=== PATIENT | female | born 1995 | race Caucasian/White ===

== ENCOUNTER 2018-05-02 19:06 | Emergency (ER) | payer MEDICAID, OTHER ==
[2018-05-02] MEDS ORDERED: ACETAMINOPHEN 325 MG TABLET PO ONE (20:22)
--- NOTE | 2018-05-02 20:31 | ER Document Report ---
ED Medical Screen (RME) - General Chief Complaint: Urinary Problem Stated Complaint: FLANK PAIN,BLOOD IN URINE Time Seen by Provider: 05/02/18 20:11 Notes: RAPID MEDICAL EVALUATION DISCLOSURE I have seen this patient as part of a Rapid Medical Evaluation and, if applicable, placed any initially appropriate orders. The patient will be seen and fully evaluated, including a full history and physical exam, by a provider ( in Main ED or Fast Track) when a room becomes available. 22-year-old female here with complaints of bilateral back pain and hematuria that started early this morning. Some associated nausea but no dysuria vomiting diarrhea abdominal pain. She has had Tylenol for the symptoms with decent relief. She has a history of UTI and states it feels similar. TRAVEL OUTSIDE OF THE [place] IN LAST 30 DAYS: No - Related Data Allergies/Adverse Reactions: No Known Allergies Allergy (Verified 09/05/15 14:24) Past Medical History - General Last Menstrual Period: 04/20/18 - Social History Frequency of alcohol use: Occasional Drug Abuse: None Pulmonary Medical History: Denies: Hx Asthma, Hx Bronchitis, Hx Pneumonia Neurological Medical History: Reports: Hx Migraine Renal/ Medical History: Reports: Hx Kidney Stones. Denies: Hx Peritoneal Dialysis Past Surgical History: Reports: Hx Tonsillectomy - Immunizations Immunizations up to date: Yes Hx Diphtheria, Pertussis, Tetanus Vaccination: Yes Doctor's Discharge - Discharge Referrals: JUN VAIL MD [Primary Care Provider] - Follow up as needed
--- NOTE | 2018-05-02 22:05 | ER Document Report ---
ED GI/ - General Chief Complaint: Urinary Problem Stated Complaint: FLANK PAIN,BLOOD IN URINE Time Seen by Provider: 05/02/18 20:11 Mode of Arrival: Ambulatory Information source: Patient Notes: Chief complaint: Left flank pain History of complain:( obtained from----patient) 22 years old female presents today with left flank pain since this evening, denies any dysuria frequency or urgency. Denies any radiation to the groin. Except hematuria. No fever chills or other constitutional symptoms Onset: Today sudden Duration: One day Severity: Mild to moderate Quality: Sharp Context: History of kidney stones Exacerbating factor and relieving factors: None REVIEW OF SYSTEMS: CONSTITUTIONAL : Denies fever, chills, or sweats. Denies recent illness. EENT: Denies eye, ear, throat, or mouth pain or symptoms. Denies nasal or sinus congestion or discharge. Denies throat, tongue, or mouth swelling or difficulty swallowing. CARDIOVASCULAR: Denies chest pain. Denies palpitations or racing or irregular heart beat. Denies ankle edema. RESPIRATORY: Denies cough, cold, or chest congestion. Denies shortness of breath, difficulty breathing, or wheezing. GASTROINTESTINAL: Denies distention. Denies nausea, vomiting, or diarrhea. Denies blood in vomitus, stools, or per rectum. Denies black, tarry stools. Denies constipation. GENITOURINARY: Denies difficulty urinating, painful urination, burning, frequency, blood in urine, or discharge. FEMALE GENITOURINARY: Denies vaginal bleeding, heavy or abnormal periods, irregular periods. Denies vaginal discharge or odor. MUSCULOSKELETAL: Denies back or neck pain or stiffness. Denies joint pain or swelling. SKIN: Denies rash, lesions or sores. HEMATOLOGIC : Denies easy bruising or bleeding. LYMPHATIC: Denies swollen, enlarged glands. NEUROLOGICAL: Denies confusion or altered mental status. Denies passing out or loss of consciousness. Denies dizziness or lightheadedness. Denies headache. Denies weakness or paralysis or loss of use of either side. Denies problems with gait or speech. Denies sensory loss, numbness, or tingling. Denies seizures. PSYCHIATRIC: Denies anxiety or stress. Denies depression, suicidal ideation, or homicidal ideation. ALL OTHER SYSTEMS REVIEWED AND NEGATIVE. PHYSICAL EXAMINATION: GENERAL: Well-appearing, well-nourished and in no acute distress. HEAD: Atraumatic, normocephalic. EYES: Pupils equal round and reactive to light, extraocular movements intact, conjunctiva are normal. ENT: Nares patent, oropharynx clear without exudates. Moist mucous membranes. NECK: Normal range of motion, supple without lymphadenopathy LUNGS: Breath sounds clear to auscultation bilaterally and equal. No wheezes rales or rhonchi. HEART: Regular rate and rhythm without murmurs ABDOMEN: Soft, nontender, nondistended abdomen. No guarding, no rebound. No masses appreciated. Right flank tenderness noted on palpation. Examination of genitals-deferred Musculoskeletal: Normal range of motion, no pitting or edema. No cyanosis. NEUROLOGICAL: Cranial nerves grossly intact. Normal speech, normal gait. Normal sensory, motor exams PSYCH: Normal mood, normal affect. SKIN: Warm, Dry, normal turgor, no rashes or lesions noted. Dictation was performed using too[employer]me voice recognition software TRAVEL OUTSIDE OF THE [place] IN LAST 30 DAYS: No - HPI Timing/Duration: Gradual Severity at maximum: Moderate Severity in ED: Moderate - Related Data Allergies/Adverse Reactions: No Known Allergies Allergy (Verified 09/05/15 14:24) Past Medical History - General Information source: Patient Last Menstrual Period: 04/20/18 - Social History Smoking Status: Former Smoker Cigarette use (# per day): No Chew tobacco use (# tins/day): No Smoking Education Provided: No Frequency of alcohol use: Occasional Drug Abuse: None Lives with: Family Family History: Reviewed & Not Pertinent, Hyperlipidemia, Hypertension, Malignancy Patient has suicidal ideation: No Patient has homicidal ideation: No Pulmonary Medical History: Denies: Hx Asthma, Hx Bronchitis, Hx Pneumonia Neurological Medical History: Reports: Hx Migraine Renal/ Medical History: Reports: Hx Kidney Stones. Denies: Hx Peritoneal Dialysis Past Surgical History: Reports: Hx Tonsillectomy - Immunizations Immunizations up to date: Yes Hx Diphtheria, Pertussis, Tetanus Vaccination: Yes Review of Systems - Review of Systems Notes: Dictated Physical Exam - Notes Notes: Dictated Course - Laboratory Laboratory results interpreted by me: 05/02/18 19:40 Urine Protein 100 H Urine Blood LARGE H Ur Leukocyte Esterase LARGE H Urine Ascorbic Acid 20 H - Diagnostic Test Radiology reviewed: Image reviewed - KUB showed large amount of fecal material, Reports reviewed Discharge - Discharge Clinical Impression: Constipation by delayed colonic transit UTI (urinary tract infection) Qualifiers: Urinary tract infection type: acute cystitis Hematuria presence: without hematuria Qualified Code(s): N30.00 - Acute cystitis without hematuria Condition: Fair Disposition: HOME, SELF-CARE Instructions: Urinary Tract Infection ([facility]), Constipation ([facility]) Prescriptions: Ciprofloxacin HCl [Cipro 500 mg Tablet] 500 mg PO BID #20 tablet Lactulose 20 gm PO BID #120 ml Referrals: JUN VAIL MD [COMMUNITY BASED STAFF] - Follow up as needed
[2018-05-02 22:10] LABS: APPEARANCE,URINE CLOUDY; BILIRUBIN,URINE NEGATIVE (NEGATIVE); COLOR,URINE YELLOW; GLUCOSE, URINE NEGATIVE (NEGATIVE); KETONES,URINE NEGATIVE (NEGATIVE); LEUKOCYTE ESTERASE,URINE LARGE (NEGATIVE); NITRITE,URINE NEGATIVE (NEGATIVE); PROTEIN,URINE 100 mg/dL (NEGATIVE); URINE SPECIFIC GRAVITY 1.023; UROBILINOGEN,URINE NEGATIVE mg/dL (<2.0)
[2018-05-02 22:11] LABS: AMORPHOUS SEDIMENT,URINE TRACE /HPF
--- NOTE | 2018-05-02 23:30 | RADIOLOGY REPORT (SQ) ---
EXAM DESCRIPTION: CT ABDOMEN PELVIS WITHOUT IV CONTRAST COMPLETED DATE/TME: 05/02/2018 22:29 CLINICAL HISTORY: Left flank pain, hematuria COMPARISON: None Available. TECHNIQUE: CT of the abdomen and pelvis without IV contrast. Evaluation of the solid organs and vasculature is suboptimal due to lack of IV contrast. DLP: 241.74 mGy-cm FINDINGS: Lung Bases: The visualized lung bases are clear. Bones: No destructive bone lesions identified. Abdomen: Liver: The liver has normal size and density. Gallbladder: No calcified gallstones. Spleen, Pancreas, and Adrenal Glands: The spleen, pancreas, and adrenal glands are unremarkable. Kidneys: The kidneys have normal size and contour without evidence of hydronephrosis. No obstructing ureteral calculi. Vasculature: The aorta and IVC have normal caliber and position. Stomach: The stomach and duodenum have normal course. Other: No free intraperitoneal air. No free fluid or lymphadenopathy. Pelvis: Bladder: Urinary bladder is unremarkable. Bowel: No dilated loops of large or small bowel. Appendix: The appendix is not definitely visualized. No secondary signs of acute appendicitis. Pelvis: Uterus is not enlarged. IMPRESSION: 1. No acute inflammatory or obstructive process identified. This exam was performed according to our departmental dose-optimization program, which includes automated exposure control, adjustment of the mA and/or kV according to patient size and/or use of iterative reconstruction technique.
[2018-05-03] MEDS ORDERED: CIPROFLOXACIN HCL 500 MG TABLET PO ONE (01:02)
[2018-05-03] MEDS ORDERED: LACTULOSE SYRUP 20 GM/30 ML UDCUP PO ONE (01:02)
[2018-05-03 01:23] VITALS: BP 123/66
== END 2018-05-03 01:15 | disposition home or self-care (01) ==
LOC: ER 19:06
DX: N30.00 Acute cystitis without hematuria (principal); K59.01 Slow transit constipation; R10.9 Unspecified abdominal pain; R31.9 Hematuria, unspecified; Z87.891 Personal history of nicotine dependence
CPT/HCPCS: 74176; 81001; 81025; 99284

== ENCOUNTER → 2018-08-03 | Outpatient (CLI) | payer OTHER ==
[2018-08-03 11:31] LABS: FREE T4 (FREE THYROXINE) 1.13 ng/dL (0.78-2.19)
[2018-08-03 11:45] LABS: THYROID STIMULATING HORMONE 0.87 uIU/mL (0.47-4.68)
== END ==
LOC: OD 09:55
PROVIDERS: ATTEND Psychiatry & Neurology Psychiatry
DX: F33.1 Major depressive disorder, recurrent, moderate (principal); Z79.899 Other long term (current) drug therapy
CPT/HCPCS: 36415; 84439; 84443

== ENCOUNTER → 2019-06-01 | Outpatient (CLI) | payer SELFPAY ==
--- NOTE | 2019-06-01 15:47 | RADIOLOGY REPORT (SQ) ---
EXAM DESCRIPTION: U/S [id number] TRNABD 1GES W/ODOP COMPLETED DATE/TIME: 06/01/2019 3:31 pm REASON FOR STUDY: Z34.01 ENCNTR FOR SUPRVSN OF NORMAL FIRST PREG, FIRST TRIMESTER Z34.01 ENCNTR FOR SUPRVSN OF NORMAL FIRST PREG, FIRST TRIMES COMPARISON: None. TECHNIQUE: Transabdominal static and realtime grayscale images acquired of the pelvis. Additional se lected spectral and color Doppler images recorded. All images stored on PACs. bHCG: Not available. CLINICAL DATES: MINDI: 12/26/2019. EGA: 10 weeks 2 days LIMITATIONS: None. FINDINGS: FETUS: Single Living intrauterine . ULTRASOUND EGA: 8 weeks 2 days ULTRASOUND MINDI: 01/09/2020 EFW: Not applicable less than 20 weeks. CRL: 1.8 cm FHR: 173 beats per minute. SURVEY: No visualized anomalies. AMNIOTIC FLUID: Adequate amount. PLACENTA: Not yet developed due to early gestation. SUBCHORIONIC BLEED: No. SIZE OF BLEED: Not applicable. UTERUS: The uterus measures 9.0 x 7.0 x 5.1 cm No masses. No anomalies. CERVICAL LENGTH: 2.6 cm. Closed. RIGHT ADNEXA: Not visualized, LEFT ADNEXA: Not visualized. FREE FLUID: None. OTHER: No other significant finding. IMPRESSION: LIVING INTRAUTERINE . EGA: 8 weeks 2 days Trimester of : First trimester - 0 to 13 weeks. TECHNICAL DOCUMENTATION: JOB ID: [id number]- All Rights Reserved rev Reading location - IP/workstation name: [email or web address]
== END ==
LOC: RAD 14:50
PROVIDERS: ATTEND Midwife
DX: Z34.01 Encounter for supervision of normal first pregnancy, first trimester (principal)
CPT/HCPCS: 76801

== ENCOUNTER 2019-12-12 11:16 | Outpatient (CLI) | payer MEDICAID ==
[2019-12-12 11:48] LABS: APPEARANCE,URINE SLIGHTLY-CLOUDY; BILIRUBIN,URINE NEGATIVE (NEGATIVE); COLOR,URINE YELLOW; GLUCOSE, URINE NEGATIVE (NEGATIVE); KETONES,URINE NEGATIVE (NEGATIVE); LEUKOCYTE ESTERASE,URINE MODERATE (NEGATIVE); NITRITE,URINE NEGATIVE (NEGATIVE); PROTEIN,URINE NEGATIVE (NEGATIVE); URINE SPECIFIC GRAVITY 1.011; UROBILINOGEN,URINE NEGATIVE mg/dL (<2.0)
[2019-12-12 12:13] LABS: URINE AMPHETAMINES SCREEN NEGATIVE; URINE BARBITURATES SCREEN NEGATIVE; URINE BENZODIAZEPINES SCREEN NEGATIVE; URINE COCAINE SCREEN NEGATIVE; URINE MARIJUANA (THC) SCREEN NEGATIVE; URINE METHADONE SCREEN NEGATIVE; URINE PHENCYCLIDINE SCREEN NEGATIVE
--- NOTE | 2019-12-12 13:26 | Non Stress Test Report ---
Non Stress Test Datetime Report Generated by CPN: 12/12/2019 13:26 DEMOGRAPHIC EGA NST: 36.0 INDICATION Indication for Study (NST) Other: false labor, thought membrane rupture MONITORING Monitor Explained: Monitor Explained; Test Explained; Patient Verbalized Understanding Time on Monitor: 12/12/2019 12:02 Time off Monitor: 12/12/2019 13:13 NST Duration: 71 NST INTERVENTIONS NST Interventions: PO Hydration Physician Notified NST: k. mosquera cnm BABY A: [id number] BABY A Movement : Present Contraction Frequency : irritability FHR Baseline : 130 Accelerations : 15X15 Decelerations : None Variability : Moderate 6-25bpm NST Review: Meets Criteria for Reactive NST NST Review and Verified By : Roselia Hall RN NST Results: Reactive NST REPORT Report Trigger: Send Report
== END 2019-12-12 13:21 | disposition home or self-care (01) ==
LOC: LC 11:16
PROVIDERS: ATTEND Obstetrics & Gynecology
PROC: 4A1HXCZ Monitoring of Products of Conception, Cardiac Rate, External Approach (ICD-10-PCS; principal; 2019-12-12)
DX: O47.03 False labor before 37 completed weeks of gestation, third trimester (principal); Z3A.36 36 weeks gestation of pregnancy
CPT/HCPCS: 59025; 80307; 81005; 84112

== ENCOUNTER 2019-12-16 12:25 | Outpatient (CLI) | payer MEDICAID ==
[2019-12-16 13:01] LABS: APPEARANCE,URINE SLIGHTLY-CLOUDY; BILIRUBIN,URINE NEGATIVE (NEGATIVE); COLOR,URINE YELLOW; GLUCOSE, URINE NEGATIVE (NEGATIVE); KETONES,URINE NEGATIVE (NEGATIVE); LEUKOCYTE ESTERASE,URINE SMALL (NEGATIVE); NITRITE,URINE NEGATIVE (NEGATIVE); PROTEIN,URINE NEGATIVE (NEGATIVE); URINE SPECIFIC GRAVITY 1.009; UROBILINOGEN,URINE NEGATIVE mg/dL (<2.0)
[2019-12-16 13:32] LABS: URINE AMPHETAMINES SCREEN NEGATIVE; URINE BARBITURATES SCREEN NEGATIVE; URINE BENZODIAZEPINES SCREEN NEGATIVE; URINE COCAINE SCREEN NEGATIVE; URINE MARIJUANA (THC) SCREEN NEGATIVE; URINE METHADONE SCREEN NEGATIVE; URINE PHENCYCLIDINE SCREEN NEGATIVE
--- NOTE | 2019-12-16 13:53 | Non Stress Test Report ---
Non Stress Test Datetime Report Generated by CPN: 12/16/2019 13:52 DEMOGRAPHIC EGA NST: 36.4 INDICATION Indication for Study (NST) Other: IUP at 36.4; No cervical dilatation. MONITORING Monitor Explained: Monitor Explained; Test Explained; Patient Verbalized Understanding Time on Monitor: 12/16/2019 12:38 Time off Monitor: 12/16/2019 13:35 NST Duration: 57 NST INTERVENTIONS NST Interventions: PO Hydration Physician Notified NST: Dr Pedroza BABY A: [id number] BABY A Movement : Present Contraction Frequency : Rare FHR Baseline : 135 Accelerations : 15X15 Decelerations : None Variability : Moderate 6-25bpm NST Review: Meets Criteria for Reactive NST NST Review and Verified By : Roselia Hall RN NST Results: Reactive NST REPORT Report Trigger: Send Report
== END 2019-12-16 13:43 | disposition home or self-care (01) ==
LOC: LC 12:25
PROVIDERS: ATTEND Obstetrics & Gynecology
PROC: 4A1HXCZ Monitoring of Products of Conception, Cardiac Rate, External Approach (ICD-10-PCS; principal; 2019-12-16)
DX: O47.03 False labor before 37 completed weeks of gestation, third trimester (principal); Z3A.36 36 weeks gestation of pregnancy
CPT/HCPCS: 59025; 80307; 81005

== ENCOUNTER 2019-12-23 00:42 | Outpatient (CLI) | payer MEDICAID ==
[2019-12-23 01:06] LABS: APPEARANCE,URINE CLEAR; BILIRUBIN,URINE NEGATIVE (NEGATIVE); COLOR,URINE YELLOW; GLUCOSE, URINE NEGATIVE (NEGATIVE); KETONES,URINE NEGATIVE (NEGATIVE); LEUKOCYTE ESTERASE,URINE NEGATIVE (NEGATIVE); NITRITE,URINE NEGATIVE (NEGATIVE); PROTEIN,URINE NEGATIVE (NEGATIVE); URINE SPECIFIC GRAVITY 1.011; UROBILINOGEN,URINE NEGATIVE mg/dL (<2.0)
[2019-12-23 01:39] LABS: URINE AMPHETAMINES SCREEN NEGATIVE; URINE BARBITURATES SCREEN NEGATIVE; URINE BENZODIAZEPINES SCREEN NEGATIVE; URINE COCAINE SCREEN NEGATIVE; URINE MARIJUANA (THC) SCREEN NEGATIVE; URINE METHADONE SCREEN NEGATIVE; URINE PHENCYCLIDINE SCREEN NEGATIVE
--- NOTE | 2019-12-23 01:56 | Non Stress Test Report ---
Non Stress Test Datetime Report Generated by CPN: 12/23/2019 01:56 DEMOGRAPHIC EGA NST: 37.4 INDICATION Indication for Study (NST) Other: labor check URINE RESULTS Urine Ketones - NST: Negative Urine Glucose - NST: Negative Urine Blood - NST: Positive MONITORING Monitor Explained: Monitor Explained; Test Explained; Patient Verbalized Understanding Time on Monitor: 12/23/2019 00:59 Time off Monitor: 12/23/2019 01:43 NST Duration: 44 NST INTERVENTIONS NST Interventions: PO Hydration BABY A: [id number] BABY A Contraction Frequency : occasional FHR Baseline : 125 Accelerations : 15X15 Decelerations : None Variability : Moderate 6-25bpm NST REPORT Report Trigger: Send Report
[2019-12-23 07:17] LABS: INTERNATIONAL RATION (INR) 1.11; PROTHROMBIN TIME 14.3 SEC (11.4-15.4)
[2019-12-23 07:18] LABS: FIBRINOGEN 503 mg/dL (209-497); PARTIAL THROMBOPLASTIN TIME 27.9 SEC (23.5-35.8)
[2019-12-23 17:18] LABS: RHOGAM DOSE INDICATED 0 VIAL(S)
== END 2019-12-23 01:52 | disposition home or self-care (01) ==
LOC: LC 00:42
PROVIDERS: ATTEND Obstetrics & Gynecology
PROC: 4A1HXCZ Monitoring of Products of Conception, Cardiac Rate, External Approach (ICD-10-PCS; principal; 2019-12-23)
DX: O47.1 False labor at or after 37 completed weeks of gestation (principal); Z3A.37 37 weeks gestation of pregnancy
CPT/HCPCS: 36415; 59025; 80307; 81001; 85384; 85460; 85610; 85730

== ENCOUNTER 2019-12-23 06:10 | Outpatient (CLI) | payer MEDICAID ==
[2019-12-23 07:13] LABS: ABSOLUTE EOSINOPHILS # (AUTO) 0.1 10^3/uL (0.0-0.6); ABSOLUTE LYMPHOCYTES (AUTO) 2.3 10^3/uL (0.5-4.7); ABSOLUTE MONOCYTES (AUTO) 0.9 10^3/uL (0.1-1.4); ABSOLUTE NEUT (AUTO) 7.3 10^3/uL (1.7-8.2); BASOPHILS % (AUTO) 0.3 % (0-2); EOSINOPHILS % (AUTO) 0.9 % (0-6); HEMATOCRIT 32.1 % (36.0-47.0); HEMOGLOBIN 11.6 g/dL (12.0-15.5); LYMPHOCYTES % (AUTO) 21.4 % (13-45); MEAN CORPUSCULAR HEMOGLOBIN 31.1 pg (27.0-33.4); MEAN CORPUSCULAR HGB CONC 36.2 g/dL (32.0-36.0); MEAN CORPUSCULAR VOLUME 86 fl (80-97); MONOCYTES % (AUTO) 8.9 % (3-13); PLATELET COUNT 219 10^3/uL (150-450); RED BLOOD COUNT 3.75 10^6/uL (3.72-5.28); RED CELL DISTRIBUTION WIDTH 12.8 % (11.5-14.0); SEGMENTED NEUTROPHILS % (AUTO) 68.5 % (42-78); TOTAL CELLS COUNTED % (AUTO) 100 %; WHITE BLOOD COUNT 10.6 10^3/uL (4.0-10.5)
--- NOTE | 2019-12-23 10:01 | Non Stress Test Report ---
Non Stress Test Datetime Report Generated by CPN: 12/23/2019 10:00 DEMOGRAPHIC Test Number: 4 EGA NST: 37.4 INDICATION Indication for Study (NST) Other: vaginal bleeding MONITORING Monitor Explained: Monitor Explained; Test Explained; Patient Verbalized Understanding Time on Monitor: 12/23/2019 06:34 Time off Monitor: 12/23/2019 09:04 NST Duration: 150 NST INTERVENTIONS NST Interventions: None Physician Notified NST: Dr Zelalem BABY A: [id number] BABY A Movement : Present Contraction Frequency : irregular FHR Baseline : 125 Accelerations : 15X15 Decelerations : None Variability : Moderate 6-25bpm NST Review: Meets Criteria for Reactive NST NST Review and Verified By : TMaritn,RN NST Results: Reactive NST REPORT Report Trigger: Send Report
== END 2019-12-23 09:23 | disposition home or self-care (01) ==
LOC: LC 06:10
PROVIDERS: ATTEND Obstetrics & Gynecology
PROC: 4A1HXCZ Monitoring of Products of Conception, Cardiac Rate, External Approach (ICD-10-PCS; principal; 2019-12-23)
DX: O46.8X3 Other antepartum hemorrhage, third trimester (principal); O47.1 False labor at or after 37 completed weeks of gestation; Z3A.37 37 weeks gestation of pregnancy
CPT/HCPCS: 36415; 59025; 85025

== ENCOUNTER 2019-12-29 06:28 | Inpatient (IN) | payer MEDICAID ==
[2019-12-29 06:54] LABS: APPEARANCE,URINE CLEAR; BILIRUBIN,URINE NEGATIVE (NEGATIVE); COLOR,URINE STRAW; GLUCOSE, URINE NEGATIVE (NEGATIVE); KETONES,URINE NEGATIVE (NEGATIVE); LEUKOCYTE ESTERASE,URINE TRACE (NEGATIVE); NITRITE,URINE NEGATIVE (NEGATIVE); PROTEIN,URINE NEGATIVE (NEGATIVE); URINE SPECIFIC GRAVITY 1.005; UROBILINOGEN,URINE NEGATIVE mg/dL (<2.0)
[2019-12-29] MEDS ORDERED: RINGERS SOLUTION,LACTATED 1,000 ML IV ONE (06:54)
[2019-12-29] MEDS ORDERED: RINGERS SOLUTION,LACTATED 1,000 ML IV PRN (06:54)
--- NOTE | 2019-12-29 06:58 | Admission Physical ---
Datetime Report Generated by CPN: 12/29/2019 06:57 CURRENT ADMISSION Chief Complaint: Suspected Ruptured Membranes Indication for Induction: Not Applicable Admit Impression : Term, Intrauterine Admit Plan: Admit to Unit; Initiate Labor Protocol ALLERGIES Medication Allergies: No Medication Allergies: No Known Allergies (12/29/2019) Latex: No Latex Allergies OBSTETRICAL HISTORY EDC: 01/09/2020 00:00 : 3 Para: 0 Term: 0 : 0 SAB: 2 IAB: 0 Livin Gestational Diabetes: No Rh Sensitization: No Incompetent Cervix: No FELIX: No Infertility: No ART Treatment: No Uterine Anomaly: No IUGR: No Hx Previous C/S: No Macrosomia: No Hx Loss/Stillborn: No PIH: No Hx : No Placenta Previa/Abruption: No Depression/PP Depression: Yes PTL/PROM: No Post Hemorrhage: No Current Procedures: Ultrasound Obstetrical History Comments: G1- 6 Weeks, 2016 G2-8 Weeks, 2017 G3- Current SEE RECORDS Alcohol: No Marijuana : No Cocaine: No Other Illicit Drugs: No Cigarettes: Former Smoker. [id number] MEDICAL HISTORY Diabetes: No Blood Transfusion: No Pulmonary Disease (Asthma, TB): No Breast Disease: No Hypertension: No [employer] Agent Surgery: No Heart Disease: No Hosp/Surgery: No Autoimmune Disorder: No Anesthetic Complications: No Kidney Disease: No Abnormal Pap Smear: No Neuro/Epilepsy: No Psychiatric Disorders: No Other Medical Diseases: No Hepatitis/Liver Disease: No Significant Family History: No Varicosities/Phlebitis: No Trauma/Violence : No Thyroid Dysfunction: No INFECTIOUS HISTORY Gonorrhea: No Genital Herpes: No Chlamydia: No Tuberculosis: No Syphilis: No Hepatitis: No HIV/AIDS Exposure: No Rash or Viral Illness: No HPV: No PHYSICAL EXAM General: Normal HEENT: Normal Neurologic: Normal Thyroid: Normal Heart: Normal Lungs: Normal Breast: Deferred Back: Normal Abdomen: Normal Genitourinary Exam: Normal Extremities: Normal DTRs: Normal Pelvic Type: Adequate FETUS A EGA: 38.3 PLANS FOR LABOR AND DELIVERY Labor and Delivery: None Pain Management: Natural Feeding Preference: Both Benefit of Breast Feed Discussed: Yes Circumcision: Yes INFORMED CONSENT Signature: with User ID: [email or web address]
[2019-12-29 07:08] LABS: URINE AMPHETAMINES SCREEN NEGATIVE; URINE BARBITURATES SCREEN NEGATIVE; URINE BENZODIAZEPINES SCREEN NEGATIVE; URINE COCAINE SCREEN NEGATIVE; URINE MARIJUANA (THC) SCREEN NEGATIVE; URINE METHADONE SCREEN NEGATIVE; URINE PHENCYCLIDINE SCREEN NEGATIVE
[2019-12-29 07:41] LABS: ABSOLUTE EOSINOPHILS # (AUTO) 0.1 10^3/uL (0.0-0.6); ABSOLUTE LYMPHOCYTES (AUTO) 2.8 10^3/uL (0.5-4.7); ABSOLUTE MONOCYTES (AUTO) 1.1 10^3/uL (0.1-1.4); ABSOLUTE NEUT (AUTO) 7.8 10^3/uL (1.7-8.2); BASOPHILS % (AUTO) 0.4 % (0-2); HEMATOCRIT 34.7 % (36.0-47.0); HEMOGLOBIN 12.3 g/dL (12.0-15.5); LYMPHOCYTES % (AUTO) 23.5 % (13-45); MEAN CORPUSCULAR HEMOGLOBIN 30.2 pg (27.0-33.4); MEAN CORPUSCULAR HGB CONC 35.3 g/dL (32.0-36.0); MEAN CORPUSCULAR VOLUME 86 fl (80-97); PLATELET COUNT 218 10^3/uL (150-450); RED BLOOD COUNT 4.05 10^6/uL (3.72-5.28); RED CELL DISTRIBUTION WIDTH 13.2 % (11.5-14.0); SEGMENTED NEUTROPHILS % (AUTO) 66.1 % (42-78); TOTAL CELLS COUNTED % (AUTO) 100 %; WHITE BLOOD COUNT 11.8 10^3/uL (4.0-10.5)
[2019-12-29] MEDS ORDERED: ONDANSETRON HCL INJ/PF 4 MG/2 ML SDV ONE (08:25)
[2019-12-29] MEDS ORDERED: ONDANSETRON HCL INJ/PF 4 MG/2 ML SDV IV PRN (08:25)
[2019-12-29] MEDS ORDERED: LIDOCAINE 1% INJ-PF (10 MG/ML) 30 ML SDV ONE ×2 (08:40→09:39)
[2019-12-29] MEDS ORDERED: MISOPROSTOL 0.2 MG TABLET ONE (08:40)
[2019-12-29] MEDS ORDERED: OXYTOCIN/NORMAL SALINE 20 UNIT/1,000 ML RTUINJ ONE (08:40)
[2019-12-29] MEDS ORDERED: GLYCERIN/WITCH HAZEL LEAF 1 EACH MED..WIPE TP PRN (09:01)
[2019-12-29] MEDS ORDERED: ZOLPIDEM TARTRATE 5 MG TABLET PO PRN (09:01)
[2019-12-29] MEDS ORDERED: PROMETHAZINE HCL INJ 25 MG/1 ML VIAL IV PRN (09:01)
[2019-12-29] MEDS ORDERED: MEASLES,MUMPS&RUBELLA VACC/PF 0.5 ML VIAL SUBCUT PRN (09:01)
[2019-12-29] MEDS ORDERED: DIBUCAINE 1% OINTMENT 28 GM TP PRN (09:01)
[2019-12-29] MEDS ORDERED: ACETAMINOPHEN WITH CODEINE #3 TABLET PO PRN (09:01)
[2019-12-29] MEDS ORDERED: ACETAMINOPHEN 325 MG TABLET PO PRN (09:01)
[2019-12-29] MEDS ORDERED: NA PHOS,M-B/NA PHOS,DI-BA (ADULT) 133 ML ENEMA PR PRN (09:01)
[2019-12-29] MEDS ORDERED: PROMETHAZINE HCL 25 MG SUPP.RECT PR PRN (09:01)
[2019-12-29] MEDS ORDERED: OXYTOCIN/NORMAL SALINE 20 UNIT/1,000 ML RTUINJ IV PRN (09:01)
[2019-12-29] MEDS ORDERED: PROMETHAZINE HCL 25 MG TABLET PO PRN (09:01)
[2019-12-29] MEDS ORDERED: MAGNESIUM HYDROXIDE SUSP 30 ML UDCUP PO PRN (09:01)
[2019-12-29] MEDS ORDERED: BENZOCAINE/MENTHOL AEROSOL SPRAY 56 ML TOP PRN (09:01)
[2019-12-29] MEDS ORDERED: DIPHENHYDRAMINE HCL 25 MG CAPSULE PO PRN (09:01)
[2019-12-29] MEDS ORDERED: DIPH/PERTUSS(ACELL)/TETANUS VAC/PF 0.5 ML SYR (>=10YO) IM PRN (09:01)
[2019-12-29] MEDS ORDERED: PSEUDOEPHEDRINE HCL 30 MG TABLET PO PRN (09:01)
[2019-12-29 09:14] LABS: ALBUMIN 2.9 g/dL (3.5-5.0); ALKALINE PHOSPHATASE 162 U/L (38-126); ANION GAP 5 (5-19); ASPARTATE AMINO TRANSFERASE 22 U/L (14-36); BILIRUBIN,TOTAL 0.2 mg/dL (0.2-1.3); BLOOD UREA NITROGEN 11 mg/dL (7-20); CALCIUM 8.3 mg/dL (8.4-10.2); CARBON DIOXIDE 21 mmol/L (22-30); CHLORIDE 109 mmol/L (98-107); GLUCOSE 70 mg/dL (75-110); TOTAL PROTEIN 5.5 g/dL (6.3-8.2)
[2019-12-29] MEDS ORDERED: BENZOCAINE/MENTHOL AEROSOL SPRAY 56 ML ONE (11:35)
--- NOTE | 2019-12-29 12:20 | Delivery Summary ---
Del Sum A-C Datetime Report Generated by CPN: 12/29/2019 12:20 DELIVERY PERSONNEL DELIVERY PERSONNEL: [id number] Delivery Doctor:: Sarah Lawson CNM Labor and Delivery Nurse:: Isabel Henry RN Nursery Nurse:: Krystyna Rose RN Wire Bound Box Machine Operator/DATA ANALYST ETL DEVELOPER: Kath Ross, ST MATERNAL INFORMATION Delivery Anesthesia: Pudendal Medications After Delivery: Pitocin Bolus-Please Comment; Cytotec 600mcg Per Rectum/Vagina Meds After Delivery Comment: 20 Units/1000 ml NSS Delivery QBL: 200 Maternal Complications: None Provider Comments: pt complete pushing, Dr. Gonzalez in room, pudendal block done by Dr. Gonzalez, pushing viable male from OA to USHA over intact perineum, 1st degree vaginal laceration, repaired without difficulty Spont delivery of grossly normal intact placenta, 3 VC, FFFM, mild uterine atony, Pitocin, massage and Cytotec 600 mcg via rectum Baby and mom in recovery in stable condition LABOR SUMMARY EDC: 01/09/2020 00:00 No. Babies in Womb: 1 Attempted: No Labor Anesthesia: None LABOR INFORMATION Onset of Labor: 12/28/2019 05:00 Complete Dilatation: 12/29/2019 08:54 Oxytocin: N/A Group B Beta Strep: negative Antibiotics # of Doses: 0 Antibiotics Time of Last Dose: N/A Name of Antibiotic Given: N/A Steroids Given: None Reason Steroids Not Administered: Not Applicable MEMBRANES Membranes Rupture Method: Spontaneous Rupture of Membranes: 12/29/2019 04:30 Length of Rupture (hr): 5.28 Amniotic Fluid Color: Clear Amniotic Fluid Amount: Moderate Amniotic Fluid Odor: None STAGES OF LABOR Stage 1 hr: 27 Stage 1 min: 54 Stage 2 hr: 0 Stage 2 min: 53 Stage 3 hr: 0 Stage 3 min: 6 Total Time in Labor hr: 28 Total Time in Labor min: 53 VAGINAL DELIVERY Episiotomy: None Laceration #1: Vaginal Laceration Extension #1: First Degree Laceration Repair: Yes Laceration Repair Note: 1st degree vaginal lac Sponge Count Correct: Yes Sharps Count Correct: Yes CSECTION DELIVERY Primary Indication: N/A Secondary Indication: N/A CSection Incidence: N/A Labor: N/A Elective: N/A CSection Incision: N/A BABY A INFORMATION Infant Delivery Date/Time: 12/29/2019 09:47 Method of Delivery: Vaginal Nurse Controlled Delivery: No Born in Route : No : N/A Forceps: N/A Vacuum Extraction: N/A Shoulder Dystocia : No PRESENTATION/POSITION BABY A Presentation: Cephalic Cephalic Presentation: Vertex Vertex Position: Left Occipital Anterior Breech Presentation: N/A PLACENTA INFORMATION BABY A Placenta Delivery Time : 12/29/2019 09:53 Placenta Method of Delivery: Spontaneous Placenta Status: Delivered SCORES BABY A Heart Rate 1 min: >100 bpm Resp Effort 1 min: Good Cry Reflex Irritability 1 min: Cough or Sneeze or Pulls Away Muscle Tone 1 min: Active Motion Color 1 min: Blue/Pale Resuscitation Effort 1 min: Tactile Stimulation SCORE 1 MIN: 8 Heart Rate 5 min: >100 bpm Resp Effort 5 min: Good Cry Reflex Irritability 5 min: Cough or Sneeze or Pulls Away Muscle Tone 5 min: Active Motion Color 5 min: Body [place], Extremities Blue Resuscitation Effort 5 min: N/A SCORE 5 MIN: 9 INFORMATION BABY A Gestational Age at Delivery: 38.3 Gestational Status: Early Term- 37- 38.6 Weeks Outcome : Liveborn Infant Condition : Stable Infant Sex: Male IDENTIFICATION BABY A Verification Date/Time: 12/29/2019 10:21 ID Band Number: [id number] Mother's Name Verified: Yes RN Verifying : MMobley RN Additional Verifying Personnel: BBaidy RN CORD INFORMATION BABY A No. Cord Vessels: 3 Nuchal Cord : Around Neck x1, Loose Cord Blood Taken: Yes-For Eval (Mom's Blood Type - or O+) Suction: None ASSESSMENT BABY A Skin to Skin: Yes Skin to Skin Time (min): 60 BABY B INFORMATION : N/A
[2019-12-29] MEDS: FERROUS SULFATE 325 MG TABLET PO SCH ×2 (12:42→17:10)
[2019-12-29] MEDS: DOCUSATE SODIUM 100 MG CAPSULE PO SCH ×2 (12:42→17:10)
[2019-12-29] MEDS: FAMOTIDINE 20 MG TABLET PO SCH ×2 (12:42→21:59)
[2019-12-29] MEDS: IBUPROFEN 800 MG TABLET PO SCH ×2 (13:15→21:59)
[2019-12-29] MEDS: SENNOSIDES/DOCUSATE 8.6-50 MG 1 EACH TABLET PO SCH (13:28)
[2019-12-29] MEDS: PRENATAL VITAMIN W DHA CAPSULE PO SCH (13:28)
[2019-12-29] MEDS: ACETAMINOPHEN WITH CODEINE #3 TABLET PO PRN (17:10)
[2019-12-30] MEDS: IBUPROFEN 800 MG TABLET PO SCH ×3 (05:01→21:48)
[2019-12-30 07:50] LABS: HEMATOCRIT 27.1 % (36.0-47.0); MEAN CORPUSCULAR HEMOGLOBIN 30.1 pg (27.0-33.4); MEAN CORPUSCULAR VOLUME 86 fl (80-97); PLATELET COUNT 169 10^3/uL (150-450); RED BLOOD COUNT 3.15 10^6/uL (3.72-5.28); RED CELL DISTRIBUTION WIDTH 13.4 % (11.5-14.0); WHITE BLOOD COUNT 11.4 10^3/uL (4.0-10.5)
[2019-12-30 08:01] LABS: HEMOGLOBIN 9.5 g/dL (12.0-15.5)
--- NOTE | 2019-12-30 11:06 | PDOC PROGRESS REPORT ---
Subjective-OB Progress Note for:: 12/30/19 Subjective: Doing well, OOB in nsy and walking in halls, , no c/o Physical Exam (OB) Vital Signs: Temp Pulse Resp BP Pulse Ox 98.5 F 72 16 115/78 100 12/29/19 20:16 12/29/19 20:16 12/29/19 20:16 12/29/19 20:16 12/29/19 20:16 Intake & Output 12/29/19 12/30/19 12/31/19 06:59 06:59 07:59 Intake Total 1400 Balance 1400 Weight 71.1 kg - PIH/Pre-Eclampsia Headache: Absent Epigastric Pain: No Visual Changes: No - Lochia Lochia Amount: Small 10-25 ml Lochia Color: Rubra/Red - Abdomen Description: Soft Hernia Present: No Fundal Description: Firm, Midline Fundal Height: u/u - u/2 Objective-Diagnostic Laboratory: 12/30/19 07:04 12/29/19 07:18 12/30/19 12/30/19 07:04 07:04 WBC 11.4 H RBC 3.15 L Hgb 9.5 L D Hct 27.1 L MCV 86 MCH 30.1 MCHC 35.0 RDW 13.4 Plt Count 169 Blood Type A NEGATIVE Assessment and Plan(PN) - Assessment and Plan (1) Vaginal delivery Is this a current diagnosis for this admission?: Yes (2) Spontaneous rupture of amniotic membranes Is this a current diagnosis for this admission?: Yes - Time Spent with Patient Time with patient: Less than 15 minutes Medications reviewed and adjusted accordingly: Yes
[2019-12-30] MEDS: PRENATAL VITAMIN W DHA CAPSULE PO SCH (11:22)
[2019-12-30] MEDS: DOCUSATE SODIUM 100 MG CAPSULE PO SCH ×2 (11:23→17:31)
[2019-12-30] MEDS: SENNOSIDES/DOCUSATE 8.6-50 MG 1 EACH TABLET PO SCH (11:23)
[2019-12-30] MEDS: FERROUS SULFATE 325 MG TABLET PO SCH ×2 (11:23→17:31)
[2019-12-30] MEDS: ACETAMINOPHEN WITH CODEINE #3 TABLET PO PRN (11:27)
[2019-12-30] MEDS: FAMOTIDINE 20 MG TABLET PO SCH ×2 (12:40→21:50)
[2019-12-31] MEDS: IBUPROFEN 800 MG TABLET PO SCH ×2 (05:39→13:24)
[2019-12-31 07:54] VITALS: BP 105/70
[2019-12-31] MEDS: PRENATAL VITAMIN W DHA CAPSULE PO SCH (09:05)
[2019-12-31] MEDS: DOCUSATE SODIUM 100 MG CAPSULE PO SCH (09:05)
[2019-12-31] MEDS: SENNOSIDES/DOCUSATE 8.6-50 MG 1 EACH TABLET PO SCH (09:05)
[2019-12-31] MEDS: FERROUS SULFATE 325 MG TABLET PO SCH (09:05)
[2019-12-31] MEDS: FAMOTIDINE 20 MG TABLET PO SCH (09:10)
--- NOTE | 2019-12-31 09:40 | PDOC PROGRESS REPORT ---
Subjective-OB Progress Note for:: 12/31/19 Subjective: Doing well, no c/o, , mother in room, voiding, eating well, no concerns Physical Exam (OB) Vital Signs: Temp Pulse Resp BP Pulse Ox 97.7 F 63 16 105/70 100 12/31/19 07:53 12/31/19 07:53 12/31/19 07:53 12/31/19 07:53 12/31/19 07:53 Intake & Output 12/30/19 12/31/19 01/01/20 05:59 06:59 06:59 Intake Total Balance Weight - PIH/Pre-Eclampsia Headache: Absent Epigastric Pain: No Visual Changes: No - Lochia Lochia Amount: Small 10-25 ml Lochia Color: Rubra/Red - Abdomen Description: Soft Hernia Present: No Fundal Description: Firm, Midline Fundal Height: u/u - u/2 Objective-Diagnostic Laboratory: 12/30/19 07:04 12/29/19 07:18 12/30/19 07:04 Blood Type A NEGATIVE Assessment and Plan(PN) - Assessment and Plan (1) Vaginal delivery Is this a current diagnosis for this admission?: Yes (2) Spontaneous rupture of amniotic membranes Is this a current diagnosis for this admission?: Yes - Time Spent with Patient Time with patient: Less than 15 minutes Medications reviewed and adjusted accordingly: Yes - Disposition Anticipated Discharge: Home Within: within 24 hours
--- NOTE | 2019-12-31 09:44 | PDOC DISCHARGE SUMMARY ---
Impression - Admit/DC Date/PCP Admission Date/Primary Care Provider: 12/29/19 06:57 RITA BARKSDALE MD Discharge Date: 12/31/19 - Discharge Diagnosis (1) Vaginal delivery Is this a current diagnosis for this admission?: Yes (2) Spontaneous rupture of amniotic membranes Is this a current diagnosis for this admission?: Yes - Additional Information Resuscitation Status: Full Code Discharge Diet: As Tolerated, Regular Discharge Activity: Activity As Tolerated, Pelvic Rest Referrals: RITA BARKSDALE MD [Primary Care Provider] - (1 week [facility]) Home Medications: 95/Iron Fum/Folic/Dha [ + Dha Combo Pack] 1 cap PO DAILY 12/12/19 HPI Gestational Age: 38.3 Reason(s) for Admission: Onset of Labor Procedures: Ultrasound Intrapartum Procedure(s): Spontaneous Vaginal Delivery Complication(s): Laceration-Vaginal Laceration-Degree: 1st Hospital Course Hospital Course: normal routine Results Laboratory Results: WBC 11.4 10^3/uL (4.0-10.5) H 12/30/19 07:04 RBC 3.15 10^6/uL (3.72-5.28) L 12/30/19 07:04 Hgb 9.5 g/dL (12.0-15.5) L D 12/30/19 07:04 Hct 27.1 % (36.0-47.0) L 12/30/19 07:04 MCV 86 fl (80-97) 12/30/19 07:04 MCH 30.1 pg (27.0-33.4) 12/30/19 07:04 MCHC 35.0 g/dL (32.0-36.0) 12/30/19 07:04 RDW 13.4 % (11.5-14.0) 12/30/19 07:04 Plt Count 169 10^3/uL (150-450) 12/30/19 07:04 Lymph % (Auto) 23.5 % (13-45) 12/29/19 07:18 [place] % (Auto) 9.0 % (3-13) 12/29/19 07:18 Eos % (Auto) 1.0 % (0-6) 12/29/19 07:18 Baso % (Auto) 0.4 % (0-2) 12/29/19 07:18 Absolute Neuts (auto) 7.8 10^3/uL (1.7-8.2) 12/29/19 07:18 Absolute Lymphs (auto) 2.8 10^3/uL (0.5-4.7) 12/29/19 07:18 Absolute Monos (auto) 1.1 10^3/uL (0.1-1.4) 12/29/19 07:18 Absolute Eos (auto) 0.1 10^3/uL (0.0-0.6) 12/29/19 07:18 Absolute Basos (auto) 0.0 10^3/uL (0.0-0.2) 12/29/19 07:18 Seg Neutrophils % 66.1 % (42-78) 12/29/19 07:18 Sodium 134.7 mmol/L (137-145) L 12/29/19 07:18 Potassium 4.0 mmol/L (3.6-5.0) 12/29/19 07:18 Chloride 109 mmol/L (98-107) H 12/29/19 07:18 Carbon Dioxide 21 mmol/L (22-30) L 12/29/19 07:18 Anion Gap 5 (5-19) 12/29/19 07:18 BUN 11 mg/dL (7-20) 12/29/19 07:18 Creatinine 0.64 mg/dL (0.52-1.25) 12/29/19 07:18 Est GFR ( Amer) > 60 (>60) 12/29/19 07:18 Est GFR (MDRD) Non-Af > 60 (>60) 12/29/19 07:18 Glucose 70 mg/dL (75-110) L 12/29/19 07:18 Uric Acid 5.0 mg/dL (2.5-6.2) 12/29/19 07:18 Calcium 8.3 mg/dL (8.4-10.2) L 12/29/19 07:18 Total Bilirubin 0.2 mg/dL (0.2-1.3) 12/29/19 07:18 Direct Bilirubin 0.0 mg/dL (0.0-0.4) 12/29/19 07:18 Neonat Total Bilirubin Not Reportable 12/29/19 07:18 Neonat Direct Bilirubin Not Reportable 12/29/19 07:18 Neonat Indirect Bili Not Reportable 12/29/19 07:18 AST 22 U/L (14-36) 12/29/19 07:18 ALT 12 U/L (<35) 12/29/19 07:18 Alkaline Phosphatase 162 U/L (38-126) H 12/29/19 07:18 Lactate Dehydrogenase 174 U/L (120-246) 12/29/19 07:18 Total Protein 5.5 g/dL (6.3-8.2) L 12/29/19 07:18 Albumin 2.9 g/dL (3.5-5.0) L 12/29/19 07:18 Urine Color STRAW 12/29/19 06:35 Urine Appearance CLEAR 12/29/19 06:35 Urine pH 7.0 (5.0-9.0) 12/29/19 06:35 Ur Specific [place] 1.005 12/29/19 06:35 Urine Protein NEGATIVE mg/dL (NEGATIVE) 12/29/19 06:35 Urine Glucose (UA) NEGATIVE mg/dL (NEGATIVE) 12/29/19 06:35 Urine Ketones NEGATIVE mg/dL (NEGATIVE) 12/29/19 06:35 Urine Blood SMALL (NEGATIVE) H 12/29/19 06:35 Urine Nitrite NEGATIVE (NEGATIVE) 12/29/19 06:35 Urine Bilirubin NEGATIVE (NEGATIVE) 12/29/19 06:35 Urine Urobilinogen NEGATIVE mg/dL (<2.0) 12/29/19 06:35 Ur Leukocyte Esterase TRACE (NEGATIVE) H 12/29/19 06:35 Urine Ascorbic Acid NEGATIVE (NEGATIVE) 12/29/19 06:35 Membranes Rupture POSITIVE (NEGATIVE) H 12/29/19 06:35 Urine Opiates Screen NEGATIVE 12/29/19 06:35 Urine Methadone Screen NEGATIVE 12/29/19 06:35 Ur Barbiturates Screen NEGATIVE 12/29/19 06:35 Ur Phencyclidine Scrn NEGATIVE 12/29/19 06:35 Ur Amphetamines Screen NEGATIVE 12/29/19 06:35 U Benzodiazepines Scrn NEGATIVE 12/29/19 06:35 Urine Cocaine Screen NEGATIVE 12/29/19 06:35 U Marijuana (THC) Screen NEGATIVE 12/29/19 06:35 RPR NONREACTIVE (NONREACTIVE) 12/29/19 07:18 Blood Type A NEGATIVE 12/30/19 07:04 Antibody Screen POSITIVE 12/29/19 07:18 Antibody Identification RHOGAM INDUCED ANTI-D 12/29/19 07:18 Screen NEGATIVE 12/30/19 07:04 Plan Health Concerns: routine Plan of Treatment: discharge home, take PNV's Goals: no complications Time Spent: Less than 30 Minutes
== END 2019-12-31 14:00 | disposition home or self-care (01) | DRG 807 ==
LOC: LC 06:28 → LR 06:57 → 2S 11:55
PROVIDERS: ADMIT Student in an Organized Health Care Education/Training Program; ATTEND Student in an Organized Health Care Education/Training Program
PROC: 10E0XZZ Delivery of Products of Conception, External Approach (ICD-10-PCS; principal; 2019-12-29)
PROC: 0HQ9XZZ Repair Perineum Skin, External Approach (ICD-10-PCS; 2019-12-29)
PROC: 3E0234Z Introduction of Serum, Toxoid and Vaccine into Muscle, Percutaneous Approach (ICD-10-PCS; 2019-12-30)
DX: O70.0 First degree perineal laceration during delivery (principal); Z37.0 Single live birth; O62.2 Other uterine inertia; Z3A.38 38 weeks gestation of pregnancy; O69.81X0 Labor and delivery complicated by cord around neck, without compression, not applicable or unspecified; O26.893 Other specified pregnancy related conditions, third trimester; Z67.11 Type A blood, Rh negative
CPT/HCPCS: 36415; 80053; 80307; 81005; 83615; 84112; 84550; 85025; 85027; 85461; 86592; 86850; 86870; 86900; 86901; J2405; J2590; J2790; J3490